=== PATIENT | female | born 1965 ===

== ENCOUNTER → 2022-01-03 | Outpatient (CLI) | payer OTHER ==
--- NOTE | 2021-12-29 08:55 | NUR ---
LMOM WITH INSTRUCTIONS AND CALL BACK NUMBER.
[~2022-01-03] VITALS: Ht 170.2 cm; Wt 84.6 kg
[~2022-01-03] MED LIST: ASPIRIN 81M81 MG/TA2 PO; COREG 6.256.25 MG/TA PO; LEXAPRO 10MG10 MG PO; MOBIC 7.5MG7.5 MG PO; VALIUM 5MG T5 MG/TAB PO
[2022-01-03 09:34] VITALS: BP 155/97; PULSE 96; TEMP 97.9
[2022-01-03 11:25] VITALS: BP 179/114; PULSE 90
== END ==
LOC: COL.RAD 09:12
DX: E04.2 Nontoxic multinodular goiter (principal)